=== PATIENT | male | born 1965 | race Two or more races ===

== ENCOUNTER 2017-09-21 10:13 | Day surgery (SDC) | payer BC ==
[~2017-09-21] VITALS: Ht 172.7 cm; Wt 77.1 kg
--- NOTE | 2017-09-21 06:47 | Anethesia Preoperative Eval ---
Anesthesia Pre-op PMH/ROS General Date of Evaluation: Sep 21, 2017 Time of Evaluation: 06:46 Anesthesiologist: kelley ASA Score: ASA 2 Mallampati Score Class I : Soft palate, uvula, fauces, pillars visible Class II: Soft palate, uvula, fauces visible Class III: Soft palate, base of uvula visible Class IV: Only hard plate visible Mallampati Classification: Class II Surgeon: netta Diagnosis: colon screening Surgical Procedure: colonoscopy Anesthesia History: none Social History: smoking - nonsmoker Allergies: Coded Allergies: No Known Allergies (Unverified , 09/20/17) Medications: see eMAR Past Medical History Hematology/Immune: 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 Exam Physician Exam Last Vital Signs Date Time Temp Pulse Resp B/P (MAP) Pulse Ox O2 Delivery O2 Flow Rate FiO2 09/21/17 10:34 98.9 77 18 113/71 99 Room Air Constitutional: NAD Neurologic: CN 2-12 intact Cardiovascular: RRR Respiratory: CTA Gastrointestinal: S/NT/ND Airway Exam Mallampati Score: Class II MO: full Neck: supple TMD: 2fb ROM: full Teeth: intact Anesthesia Pre-op A/P Studies Pre-op Studies: EKG - nsr Risk Assessment & Plan Assessment: asa2 Plan: mac Status Change Before Surgery: No Pre-Antibiotics Drug: LUPE Rosario Sep 21, 2017 06:47
--- NOTE | 2017-09-21 10:29 | Pre-Procedure Note/Attestation ---
Pre-Procedure Note/Attestation Complete Prior to Procedure Planned Procedure: not applicable Procedure Narrative: colonoscopy Indications for Procedure Pre-Operative Diagnosis: screening Attestation I attest that I discussed the nature of the procedure; its benefits; risks and complications; and alternatives (and the risks and benefits of such alternatives ), prior to the procedure, with the patient (or the patient's legal advertising sales representative). I attest that, if there was a reasonable possibility of needing a blood transfusion, the patient (or the patient's legal advertising sales representative) was given the [facility] standardized written summary, pursuant to the [place] Blood Safety Act ([place] Health and Safety Code # 1645, as amended). I attest that I re-evaluated the patient just prior to the surgery and that there has been no change in the patient's H&P, except as documented below: NEETA CHACKO Sep 21, 2017 10:29
--- NOTE | 2017-09-21 10:30 | Short Stay Surgery H&P ---
History of Present Illness History of Present Illness Chief Complaint screening colon HPI Key Garcia is a 52 year old male who was admitted on for Screening Patient History Allergies: Coded Allergies: No Known Allergies (Unverified , 09/20/17) PAST MEDICAL HISTORY: Past Surgeries: Social History: Review of Systems Cardiovascular: Reports: no symptoms Respiratory: Reports: no symptoms Skeletal: Reports: no symptoms Gastrointestinal: Reports: no symptoms Genitourinary: Reports: no symptoms Neurologic: Reports: no symptoms Endocrine: Reports: no symptoms Hematologic: Reports: no symptoms Physical Exam Skin: normal HENT: normal Heart: normal Lungs: normal Abdomen: normal Extremities: normal Plan Plan of Care colonoscopy Final Diagnosis: Attestation Are the patient's medical conditions optimized for surgery? Attestation Response: yes NEETA CHACKO Sep 21, 2017 10:30
[2017-09-21 10:34] VITALS: BP 113/71
[2017-09-21] MEDS ORDERED: NKM (10:37)
[2017-09-21] MEDS ORDERED: Lidocaine 1% MPF 10mg/ml 5ml ONE (10:50)
[2017-09-21] MEDS ORDERED: Propofol 200mg/20ml IV ONE (10:50)
--- NOTE | 2017-09-21 11:23 | Endoscopy Procedure Note ---
Endoscopy Procedure Note Indication for Procedure: screening Procedures Performed: colonoscopy Operative Findings/Diagnosis: one polyp Specimen: yes Pt Tolerated Procedure Well: Yes Estimated Blood Loss: none Anesthesiologist: nida Anesthesia: MAC Implant(s) used?: No 50 yrs or older w/o bx or poly: No 10yrs. F/U not recommended: Yes If not recommended, why?: Above average risk 10 yrs. F/U needed: Yes 18 years or older w/prev. colo: Yes <3yrs. since last colonoscopy: No NEETA CHACKO Sep 21, 2017 11:23
[2017-09-21] MEDS ORDERED: fentaNYL 100 mcg/2 mL IV PRN (11:30)
[2017-09-21] MEDS ORDERED: Atropine Inj 1mg/10ml Syr IV PRN (11:30)
[2017-09-21] MEDS ORDERED: DiphenhydrAMINE 50mg/ml Inj IVP PRN (11:30)
[2017-09-21] MEDS ORDERED: Midazolam 2mg/2ml Inj IVP PRN (11:30)
[2017-09-21 11:34] VITALS: BP 97/68
[2017-09-21 11:40] VITALS: BP 103/71
[2017-09-21 11:45] VITALS: BP 113/66
--- NOTE | 2017-09-21 11:51 | Immediate Post-Op Evaluation ---
Immediate Post-Op Evalulation Immediate Post-Op Evalulation Procedure: colonoscopy Date of Evaluation: Sep 21, 2017 Time of Evaluation: 11:47 IV Fluids: 0.9ns 250ml Blood Products: none Estimated Blood Loss: negligible Blood Pressure Systolic: 113 Blood Pressure Diastolic: 66 Pulse Rate: 66 Respiratory Rate: 18 O2 Sat by Pulse Oximetry: 99 Temperature (Fahrenheit): 98.2 Pain Score (1-10): 0 Nausea: No Vomiting: No Complications none Patient Status: awake, reacts, patent Hydration Status: adequate Drug: LUPE Rosario Sep 21, 2017 11:50
[2017-09-21 11:55] VITALS: BP 111/71
--- NOTE | 2017-09-21 11:57 | 48 Hour Post Anesthesia Eval ---
Post Anesthesia Evaluation Procedure: colonoscopy Date of Evaluation: Sep 21, 2017 Time of Evaluation: 11:51 Blood Pressure Systolic: 11 0: 100 Pulse Rate: 70 Respiratory Rate: 18 Temperature (Fahrenheit): 98.2 O2 Sat by Pulse Oximetry: 98 Airway: patent Nausea: No Vomiting: No Pain Intensity: 0 Hydration Status: adequate Cardiopulmonary Status: stable Mental Status/LOC: patient returned to baseline Post-Anesthesia Complications: none Follow-up care needed: N/A LUPE BOWMAN Sep 21, 2017 11:57
[2017-09-21 12:00] VITALS: BP 104/75
--- NOTE | 2017-09-21 22:15 | Procedure Note ---
DATE OF PROCEDURE: 09/21/2017 SURGEON: Ethan Sage M.D. PROCEDURE: Colonoscopy with biopsy. ANESTHESIA: Per Dr. Kohler. INSTRUMENT: Olympus adult flexible colonoscope. INDICATION: Screening colonoscopy. REASON FOR PROCEDURE: The procedure, risks, benefits, and possible consequences, including hemorrhage, aspiration, perforation and infection, and alternative treatments, were explained to the patient/legal guardian by Dr. Ethan Sage and the patient/legal guardian understood and accepted these risks. DESCRIPTION OF PROCEDURE: After informed consent was obtained and the patient was adequately sedated, first rectal examination was performed, which was normal. Then, the scope was advanced from the rectum into the cecum and then subsequently into the terminal ileum. We used a for this procedure to be able to see the polyps better. The patient had normal terminal ileum mucosa and the quality of prep was good except for few parts of greenish fluid, which we washed and aspirated as best as we could. The patient had one diminutive polyp in the sigmoid area, which was biopsied with the cold biopsy forceps technique. The rest of the exam was grossly within normal limits. Retroflexion of the rectum showed no obvious internal hemorrhoids. SUMMARY OF FINDINGS: One colonic polyp removed, otherwise normal colonoscopy examination up to the terminal ileum. RECOMMENDATIONS: Followup biopsy results and treat accordingly. Ethan Sage M.D. DR: HIEU JOB#: [id number] CC:
== END 2017-09-21 12:32 | disposition home or self-care (01) ==
LOC: GAS 10:13
DX: Z12.11 Encounter for screening for malignant neoplasm of colon (principal); K63.5 Polyp of colon; Z90.81 Acquired absence of spleen; M85.80 Other specified disorders of bone density and structure, unspecified site
CPT/HCPCS: 45380; J2704; 94003; 94150